=== PATIENT | male | born 1940 | race African-American/Black ===

== ENCOUNTER 2020-02-07 09:39 | Emergency (ER) | payer OTHER ==
--- NOTE | 2020-02-07 10:38 | CT ---
EXAM: CT brain without contrast HISTORY: Headache and hypertension COMPARISON: None TECHNIQUE: Multiple contiguous axial images were obtained and a CT of the brain without contrast. FINDINGS: There is a mixed density chronic subdural hemorrhage along the left frontal convexity measu ring 2.4 cm in thickness. This causes slight shift of the midline to the right of 6 mm. A subdural hygroma is seen along the right frontal convexity. There is no evidence of hydrocephalus or intravent ricular hemorrhage. The calvarium and overlying soft tissues are unremarkable. The visualized paranasal sinuses and masto id air cells are well aerated. IMPRESSION: Chronic left subdural hemorrhage Dr. Rubio notified of findings at 10:35 AM on 02/07/2020
[2020-02-07] MEDS ORDERED: hydrALAZINE 20 MG/ML VIAL ONE (10:49)
[2020-02-07] MEDS ORDERED: Ondansetron PF 4 MG/2 ML Vial ONE (10:49)
[2020-02-07 11:41] LABS: INR-International Normal Ratio 1.2; PTT 23.1 sec (22.9-36.1); Prothrombin Time 15.6 sec (12.0-14.7)
[2020-02-07 11:52] LABS: ALT (SGPT) 30 U/L (8-55); AST (SGOT) 25 U/L (5-34); Albumin 3.5 g/dL (3.4-4.8); Alkaline Phosphatase 136 U/L (40-110); Anion Gap 15 mmol/L (10-20); BUN (Urea Nitrogen) 48 mg/dL (8.4-25.7); Bilirubin, Direct 0.2 mg/dL (0.1-0.3); Bilirubin, Total 0.4 mg/dL (0.2-1.2); Calc. Creatinine Clearance 0 mL/min (70-130); Calcium 8.7 mg/dL (7.8-10.44); Carbon Dioxide 19 mmol/L (23-31); Chloride 112 mmol/L (98-107); Estimated GFR-MDRD 18; Glucose 101 mg/dL (83-110); Potassium 5.1 mmol/L (3.5-5.1); Protein, Total 7.6 g/dL (5.8-8.1); Sodium 141 mmol/L (136-145)
[2020-02-07 12:08] LABS: CKMB 2.3 ng/mL (0-6.6)
[2020-02-07 12:36] LABS: Band 1 % (5-11); Eosinophils 1 % (0-10); Hemoglobin 13.2 g/dL (14.0-18.0); Lymphocytes 14 % (21-51); MDiff Complete? YES; Mean Corpuscular Hemoglobin 28.9 pg (27.0-31.0); Mean Corpuscular Volume 90.1 fL (78.0-98.0); Monocytes 3 % (0-10); Neutrophil 75 % (42-75); Platelet Count 91 thou/uL (130-400); Platelet Morphology Comment PLT clumps seen-ADEQ; RBC Morphology Normal; Reactive Lymphocytes 5 % (0-10); Red Blood Cell (RBC) Count 4.57 mill/uL (4.70-6.10); White Blood Cell (WBC) Count 6.4 thou/uL (4.8-10.8)
[2020-02-07] MEDS ORDERED: Sodium Chloride 0.9% 500 ML ONE (13:10)
[2020-02-07 15:41] LABS: Troponin I 0.053 ng/mL (< 0.028)
== END 2020-02-07 15:17 | disposition short-term general hospital (02) ==
LOC: NAV ERS 09:39
DX: I62.02 Nontraumatic subacute subdural hemorrhage (principal); I16.0 Hypertensive urgency; I25.10 Atherosclerotic heart disease of native coronary artery without angina pectoris; I11.0 Hypertensive heart disease with heart failure; I50.9 Heart failure, unspecified; I48.91 Unspecified atrial fibrillation; F32.9 Major depressive disorder, single episode, unspecified; Z79.01 Long term (current) use of anticoagulants; Z79.82 Long term (current) use of aspirin; Z79.899 Other long term (current) drug therapy
CPT/HCPCS: 36415; 70450; 80048; 80076; 82553; 84484; 85025; 85610; 85730; 93005; 96361; 96374; 96375; J0360; J2405; J7030